=== PATIENT | female | born 1960 | race Caucasian/White ===

== ENCOUNTER 2020-11-19 22:19 | Emergency (ER) | payer MEDICAID ==
[~2020-11-19] VITALS: Ht 157.5 cm; Wt 113.4 kg
[2020-11-19] MEDS ORDERED: KETOROLAC TROMETHAMINE INJ 30 MG/ML VIAL ONE (23:14)
--- NOTE | 2020-11-19 23:20 | NUR ---
XRAY AT BEDSIDE
[2020-11-19] MEDS ORDERED: KETOROLAC TROMETHAMINE INJ 60 MG/2 ML VIAL IM ONE (23:30)
[2020-11-20] MEDS ORDERED: SULF1TAB48 PO (01:12)
[2020-11-20] MEDS ORDERED: OXYC-128 PO (01:12)
--- NOTE | 2020-11-20 01:27 | NUR ---
PT OK TO BE DISCHARGED PER DR JONES. Patient discharged to home in stable condition. Written and verbal after care instructions given. Patient verbalizes understanding of instruction.Patient is awake and alert to self, day, and place. PT ambulatory with a steady gait
[2020-11-20 01:41] VITALS: BP 126/72
== END 2020-11-20 01:30 | disposition home or self-care (01) ==
LOC: ER 22:30
DX: S80.02XA Contusion of left knee, initial encounter (principal); L03.116 Cellulitis of left lower limb; E03.9 Hypothyroidism, unspecified; Z88.0 Allergy status to penicillin; Z88.1 Allergy status to other antibiotic agents; W19.XXXA Unspecified fall, initial encounter; Y93.89 Activity, other specified; Y92.89 Other specified places as the place of occurrence of the external cause; Y99.8 Other external cause status
CPT/HCPCS: 73560; 73590; 93971; 96372; 99284; J1885

== ENCOUNTER 2024-03-15 03:59 | Emergency (ER) | payer MEDICAID, OTHER ==
[~2024-03-15] VITALS: Ht 157.5 cm; Wt 113.4 kg
[~2024-03-15 03:59] MED LIST: OXYC-128 PO; SULF1TAB48 PO
[2024-03-15 04:15] VITALS: BP 168/98; TEMP 98.4
[2024-03-15] MEDS ORDERED: CLINDAMYCIN HCL 150 MG CAPSULE ONE (04:26)
[2024-03-15] MEDS: CLINDAMYCIN HCL 150 MG CAPSULE PO ONE (04:31)
[2024-03-15] MEDS ORDERED: CLIN300C12 PO (04:57)
[2024-03-15 05:06] VITALS: O2SAT 98
== END 2024-03-15 05:25 | disposition home or self-care (01) ==
LOC: ER 04:04
DX: L03.116 Cellulitis of left lower limb (principal); L03.115 Cellulitis of right lower limb; E03.9 Hypothyroidism, unspecified; Z88.0 Allergy status to penicillin; Z88.1 Allergy status to other antibiotic agents